=== PATIENT | male | born 2005 | race Caucasian/White ===

== ENCOUNTER 2023-04-13 22:05 | Emergency (ER) | payer MEDICAID, OTHER ==
[~2023-04-13] VITALS: Ht 167.6 cm; Wt 118.0 kg
[2023-04-13 22:08] VITALS: BP 155/92; PULSE 112; RESP 20; TEMP 98.3; O2SAT 99
== END 2023-04-14 01:10 | disposition left against medical advice (07) ==
LOC: ER 22:05
DX: Z53.21 Procedure and treatment not carried out due to patient leaving prior to being seen by health care provider (principal); I49.9 Cardiac arrhythmia, unspecified
CPT/HCPCS: 93005; 99281

== ENCOUNTER 2023-06-01 02:15 | Emergency (ER) | payer OTHER ==
[~2023-06-01] VITALS: Ht 177.8 cm; Wt 114.0 kg
[2023-06-01 02:27] VITALS: O2SAT 100
[2023-06-01 05:14] VITALS: BP 138/78; PULSE 99; RESP 15; TEMP 98.1
== END 2023-06-01 05:11 | disposition home or self-care (01) ==
LOC: ER 02:15
DX: F41.9 Anxiety disorder, unspecified (principal); I10 Essential (primary) hypertension
CPT/HCPCS: 99283

== ENCOUNTER 2023-08-27 07:36 | Emergency (ER) | payer OTHER ==
[~2023-08-27] VITALS: Ht 170.2 cm; Wt 90.0 kg
[2023-08-27 07:56] VITALS: O2SAT 100
[2023-08-27 09:45] VITALS: BP 133/88; PULSE 100; RESP 18; TEMP 98
== END 2023-08-27 10:30 | disposition home or self-care (01) ==
LOC: ER 08:56
DX: T43.651A Poisoning by methamphetamines accidental (unintentional), initial encounter (principal); F15.10 Other stimulant abuse, uncomplicated; Y92.89 Other specified places as the place of occurrence of the external cause
CPT/HCPCS: 99281; Z7610

== ENCOUNTER 2024-02-24 22:38 | Emergency (ER) | payer MEDICAID, OTHER ==
[~2024-02-24] VITALS: Ht 167.6 cm; Wt 125.0 kg
[2024-02-24 22:44] VITALS: BP 126/70; PULSE 106; RESP 16; TEMP 98; O2SAT 100
== END 2024-02-25 03:10 | disposition left against medical advice (07) ==
LOC: ER 22:38
DX: F41.9 Anxiety disorder, unspecified (principal); Z53.21 Procedure and treatment not carried out due to patient leaving prior to being seen by health care provider

== ENCOUNTER 2024-07-17 23:56 | Emergency (ER) | payer MEDICAID, OTHER ==
[~2024-07-17] VITALS: Ht 167.6 cm; Wt 120.0 kg
[2024-07-18 00:07] VITALS: BP 143/86; PULSE 98; RESP 18; TEMP 37.1; O2SAT 98
[2024-07-18] MEDS ORDERED: HYDR10TA34 MT (00:10)
[2024-07-18 00:21] VITALS: O2SAT 98
== END 2024-07-18 00:23 | disposition home or self-care (01) ==
LOC: ER 23:56
DX: F41.9 Anxiety disorder, unspecified (principal); I10 Essential (primary) hypertension
CPT/HCPCS: 99283; Z7610